=== PATIENT | female | born 1945 | race Caucasian/White ===

== ENCOUNTER → 2017-06-26 16:58 | Outpatient (CLI) | payer MEDICARE, OTHER, SELFPAY ==
--- NOTE | 2017-06-26 17:07 | RAD_ITS ---
STUDY: X-RAY - RIGHT FOOT CLINICAL: Female, 72 years old. Intermittent right ankle and foot pain for months. No history of trauma. TECHNIQUE: 3 view(s) of the foot with weightbearing. COMPARISON: None. FINDINGS: Normal talus, calcaneus, and tarsal bones. Plantar calcaneal bone spur. Normal visualized subtalar, talonavicular, calcaneocuboid, tarsal and tarsometatarsal articulations. Normal metatarsi. Joint space narrowing first metatarsophalangeal joint. Normal tibial and fibular sesamoid bones. Normal interphalangeal joint of the great toe. Normal phalanges of the great toe. Normal second through fifth metatarsophalangeal joints. Normal interphalangeal joints and phalanges of the lesser toes. The soft tissue structures are unremarkable. RAD/Foot min 3 Views IMPRESSION: Degenerative changes first metatarsophalangeal joint. Plantar calcaneal bone spur. Electronically Signed: Miguel Angel Davidson MD at 7:58 EDT , Service support ,
== END ==
PROVIDERS: Family Provider Family Medicine; PCP Family Medicine; Visit Provider Family Medicine
DX: M25.571 Pain in right ankle and joints of right foot (principal)
CPT/HCPCS: 73630

== ENCOUNTER → 2017-08-08 10:08 | Outpatient (CLI) | payer MEDICARE, SELFPAY ==
--- NOTE | 2017-08-08 10:10 | BI_ITS ---
MAMMOGRAPHY - BILATERAL SCREENING REASON FOR EXAM: Female, 72 years old. Routine annual screening examination. PERTINENT HISTORY: Non-contributory. TECHNIQUE: Digital bilateral breast thom (3D mammographic acquisition) in the CC and MLO projections. 2-D mediolateral oblique (MLO) and craniocaudad (CC) views of both breasts were obtained. CAD: Full Field Digital Mammography with Computer Added Detection was performed. COMPARISON: Comparison is made with prior study dated July 27, 2015 and May 28, 2012. FINDINGS: Breast Composition: There are scattered areas of fibroglandular density. There are no dominant masses or suspicious calcifications. No other significant abnormalities are identified. There has been no significant change since the prior study. BI/SCREENING MAMM (CAD), BILAT IMPRESSION: Stable bilateral screening mammogram. Yearly follow-up mammogram recommended. (A) ASSESSMENT CATEGORY: BIRADS Category 1: Negative. A letter regarding these results will be sent to the patient by the facility within 30 days. Approximately 10% of breast cancers are not detected by mammography. A normal mammogram should not delay biopsy of a clinically suspicious abnormality. [id number] Electronically Signed: João Gonzales MD at 12:28 EDT Tel [phone], Service support ,
== END ==
PROVIDERS: Family Provider Family Medicine; PCP Family Medicine; Visit Provider Family Medicine
DX: Z00.00 Encounter for general adult medical examination without abnormal findings (principal); Z12.31 Encounter for screening mammogram for malignant neoplasm of breast
CPT/HCPCS: 77063; 77067

== ENCOUNTER 2017-08-14 11:00 | Outpatient (RCR) | payer MEDICARE, OTHER, SELFPAY ==
--- NOTE | 2017-07-30 07:39 | HP.PTEVAL_ITS ---
Patient's Visit Information DEBRA JENKINS is a 72 year old F referred to Physical Therapy by Francisco Wakefield with a diagnosis of R medial mortise pain. Date of Evaluation: 07/17/17 Physical Therapist: Brady Garcia - Visit Plan Frequency: 1-2x /Week Duration: 4-6 Weeks Plan: Start with post tib and foot intrinsic strengthening. May use modalities to reduce symptoms. Trial taping to stabilize foot, possible need for orthotics. - Subjective Subjective: Pt. is here today for her initial evaluation with diangosis of R medial mortise pain in her foot. Pt. reports having increasing pain for a few months now with no mechanism of injury, except that she thinks she has changed her gait pattern due to L knee pain. Pt. reports increased pain with walking fast, descending steps, but has minimal pain with decreased tempo with gait. Pt. reports feeling slight better over the last week or so. Pt. did get back recently from a trip where she had to walk a lot and this really bothered her. Pt. denies N/T, no previous foot injury. Pt. denies falls. Pt. has no difficulty with sleep or off loaded positioning. Pt. is hopeful to reduce symptoms in order to get back to all recreational walking without issues. - Pain R medial ankle Pain Intensity (Out of 10): 0 Pain Intensity Range: 0, 7 Comment: 7/10 with walking. - Objective POSTURE: PT. has normal knee posture in stance. Pt. has minimal navicular drop bilaterally. PALPATION: Pt. has increased pain aloing medial aspect of talofibular joint, just medial to ant tib tendon. Pt. has no ant tib pain or lateral ankle pain. NEUROLOGICAL: pt. has normal sensation to light and sharp touch throughout bilateral LEs. Pt. has 2+ achilles and patellar DTR bilaterally. Pt. is able to rise on heels and toes without signs of visible weakness. ROM: L ankle- normal ROM throughout, 14deg of DF on L ankle, normal knee ROM. R ankle- 12deg DF, EVR 18deg mild increase NW at medial ankle. Normal knee ROM. MMT: LLE- ankle 5/5 throughout; knee- 5/5 throughout. RLE- ankle 5/5 throughout, mild increase in symptoms with inv testing. 5/5 strength of knee musculature. GAIT: Pt. ambulates without ad, she has decreased L step length and R hip ext due to reports of increased pain. Pt. has increased R hind foot valgus during stance phase of gait that is not present with initial contact. STAIRS: Pt. has increased hind gooft valgus during eccentric lowering on R side. - Goals Goal 1:: Pt. to be I with HEP. Goal Time Frame: 4-6 Weeks Goal 2:: Pt. to have full AROM of R ankle without increase in medial ankle pain. Goal Time Frame: 4-6 Weeks Goal 3:: Pt. to have increased post tib strength and foot intrinsic strength to 5/5 to reduce stress to medial aspect of ankle. Goal Time Frame: 4-6 Weeks Goal 4:: Pt. to have improved gait pattern with reduce reports of pain to 0-2/ 10 allowing for increased quality of life. Goal Time Frame: 4-6 Weeks - Rehabilitation Potential Physical Therapy Diagnosis: Pt. has signs and symptoms consistent with R medial ankle pain. Pt. has no signs of marked weakness except for post. tib and foot intrinsic, and her gait pattern is altered. I recommended pt. work on post tib stability exercises and possible need for orthotics to reduce hindfoot valgus positioning with gait. Rehabilitation Potential: Excellent - Anticipated Interventions Patient/Client Instruction: Educate patient on: Condition, Plan of Care, Risk Factors, Benefits of Fitness Program For the Purpose of:: To foster healthy habits, To improve decision making, To facilitate caregiver knowledge, To improve self management, To prevent re-injury , To improve ability to perform tasks related to life management, To improve tolerance to ADL's Therapeutic Exercise to Include: Strength training, Balance training, Coordination, Gait and locomotor training, Passive ROM, Active ROM For the Purpose of:: To decrease pain, To decrease swelling/inflammation, To increase ROM, To improve nutrient delivery to tissue, To improve gait and locomotor functions, To improve health of tissue, To decrease soft tissue restriction Manual Therapy Techniques to Include: Mobilization, Passive ROM For the Purpose of:: To decrease pain, To increase ROM, To improve nutrient delivery to tissue, To increase oxygenation perfusion IF ES: Yes Ultrasound (thermal/non thermal): Yes For the Purpose of:: To decrease pain, To decrease swelling/inflammation, To increase ROM Thank you for the opportunity to evaluate your patient. For Medicare and Medicare HMO plans, please review the plan of care and approve it. It will need to be FAXED BACK to us at [phone] for Medicare purposes. Please let me know if there are questions or concerns regarding this plan of care. Physician Signature: Date:
--- NOTE | 2017-08-16 13:46 | HP.PTREVAL_ITS ---
Francisco Wakefield, It has been my pleasure to treat DEBRA JENKINS over the last 5 visits for R medial mortise pain. Please see the progress note below for an update on the physical therapy plan of care! Subjective: Pt. reports I am feeling better, but not all the way better yet.' Pt. reports being HEP compliant without issues. Pt. plans on continuing to stretch and strengthening on own at this point in time. Pt. reports having 1-2/ 10 pain with all walking and medial aspects of anterior ankle. Objective/Function: Pt. has normal ROM of R ankle, but does have increased R medial ankle pain with increased overpressure with DF. Pt. is ambulating without AD, but does have increased medial stress due to increased R foot EVR and pes planus positioning during stance phase. She continue to be tender to touch at medial joint line. Pt. is progressing with strength of intrinsics 5-/5 , and post tib 5-/5. Pt. is to continue working on at home. Pt. consents. Plan Plan: Pt. to trial stretching and strengthening on own at this point in time and follow up with PT in 2-3 weeks if needed. I will leave case open for ~4 weeks, if I do not hear from her I will Dc case. Goals Goal 1:: Pt. to be I with HEP. Goal Time Frame: 4-6 Weeks Goal Progress: Goal Met Goal 2:: Pt. to have full AROM of R ankle without increase in medial ankle pain. Goal Time Frame: 4-6 Weeks Goal Progress: Progressing Goal 3:: Pt. to have increased post tib strength and foot intrinsic strength to 5/5 to reduce stress to medial aspect of ankle. Goal Time Frame: 4-6 Weeks Goal Progress: Progressing Goal 4:: Pt. to have improved gait pattern with reduce reports of pain to 0-2/ 10 allowing for increased quality of life. Goal Time Frame: 4-6 Weeks Goal Progress: Progressing Anticipated Interventions Patient/Client Instruction: Educate patient on: Condition, Plan of Care, Risk Factors, Benefits of Fitness Program For the Purpose of:: To foster healthy habits, To improve decision making, To facilitate caregiver knowledge, To improve self management, To prevent re-injury , To improve ability to perform tasks related to life management, To improve tolerance to ADL's Therapeutic Exercise to Include: Strength training, Balance training, Coordination, Gait and locomotor training, Passive ROM, Active ROM For the Purpose of:: To decrease pain, To decrease swelling/inflammation, To increase ROM, To improve nutrient delivery to tissue, To improve gait and locomotor functions, To improve health of tissue, To decrease soft tissue restriction Manual Therapy Techniques to Include: Mobilization, Passive ROM For the Purpose of:: To decrease pain, To increase ROM, To improve nutrient delivery to tissue, To increase oxygenation perfusion IF ES: Yes Ultrasound (thermal/non thermal): Yes For the Purpose of:: To decrease pain, To decrease swelling/inflammation, To increase ROM Please do not hesitate to contact me at [phone] by phone or Fax: if you have questions or concerns regarding this new plan of care! Sincerely, Brady Garcia
--- NOTE | 2018-01-10 11:00 | HP.PTDCNRP_ITS ---
HP - Discharge Summary (1) - Patient Information DEBRA JENKINS was seen in my office for initial evaluation on 07/17/17. The following Plan of Care was established for this patient: Initial Frequency: 1-2x /Week Initial Duration: 4-6 Weeks - Anticipated Interventions Patient/Client Instruction: Educate patient on: Condition, Plan of Care, Risk Factors, Benefits of Fitness Program For the Purpose of:: To foster healthy habits, To improve decision making, To facilitate caregiver knowledge, To improve self management, To prevent re- injury, To improve ability to perform tasks related to life management, To impr ove tolerance to ADL's Therapeutic Exercise to Include: Strength training, Balance training, Coordination, Gait and locomotor training, Passive ROM, Active ROM For the Purpose of:: To decrease pain, To decrease swelling/inflammation, To increase ROM, To improve nutrient delivery to tissue, To improve gait and locomotor functions, To improve health of tissue, To decrease soft tissue restriction Manual Therapy Techniques to Include: Mobilization, Passive ROM For the Purpose of:: To decrease pain, To increase ROM, To improve nutrient delivery to tissue, To increase oxygenation perfusion IF ES: Yes Ultrasound (thermal/non thermal): Yes For the Purpose of:: To decrease pain, To decrease swelling/inflammation, To increase ROM This patient was last seen in our office 08/14/17. Pertinent comments regarding their Physical therapy will appear below: Pt. was seen for her R medial ankle pain. Pt. was having some success with PT, but was not all the way better at our last visit. Pt. was to complete exercises on own as she desired and follow up with PT if needed. Pt. has not been seen in several months and will DC from PT at this point in time. At this point I will be discontinuing this patient from physical therapy. I would be happy to see this patient again in the future if found appropriate by the physician. Thank you! Brady Garcia
== END 2017-08-14 19:00 | disposition home or self-care (01) ==
LOC: PT 11:00
PROVIDERS: Family Provider Family Medicine; PCP Family Medicine; Visit Provider Family Medicine
DX: M25.571 Pain in right ankle and joints of right foot (principal)
CPT/HCPCS: 97035; 97110; 97161

== ENCOUNTER → 2017-10-05 09:25 | Outpatient (CLI) | payer MEDICARE, OTHER, SELFPAY ==
[2017-10-05 12:20] LABS: Absolute Lymphocyte Count 2.14 X10^3/ul (0.83-4.51); Absolute Neutrophil Count 4.7 X10^3/uL (2.0-7.7); Basophil# 0.02 X10^3/uL; Basophil% 0.3 % (0-1); Eosinophil# 0.08 X10^3/uL; Hematocrit 42.4 % (37-47); Hemoglobin 14.3 g/dl (12.0-15.0); Lymphocyte # 2.14 X10^3/ul (4.0); Lymphocyte % 27.8 % (19-41); Mean Corp Hgb Conc 33.7 g/gl (32-36); Mean Corpuscular Hgb 30.2 pg (27.0-32.0); Mean Corpuscular Volume 89.5 fL (81-99); Mean Platelet Vol. 12.3 fl (6.2-12.0); Monocyte# 0.73 X10^3/uL; Monocyte% 9.5 % (0-10); Platelet Count 266 K/mm3 (150-450); RBC Distribution Width CV 13.7 % (11.6-14.6); RBC Distribution Width SD 44.1 fl (35.1-43.9); Red Blood Count 4.74 M/mm3 (4.2-5.4); White Blood Count 7.7 K/mm3 (4.4-11.0)
[2017-10-05 12:24] LABS: POSITIVE COUNT NO; POSITIVE DIFFERENTIAL NO; POSITIVE MORPHOLOGY NO
[2017-10-05 12:25] LABS: Erythrocyte Sedimentation Rate 7 mm/hr (0-30)
[2017-10-05 15:59] LABS: ALB/GLOB Ratio 0.9 RATIO (0.9-2.4); AST(SGOT) 23 U/L (15-37); Alanine Aminotransfer ALT/SGPT 32 U/L (13-56); Albumin, Serum 3.7 g/dL (3.2-5.0); Alkaline Phosphatase 71 U/L (45-117); Anion Gap 10 (5-15); BUN 17 mg/dL (7-18); BUN/Creat Ratio 20.4 RATIO (10-20); CRP 5.83 mg/L (0.0-3.0); Calcium,Total 8.7 mg/dL (8.5-10.1); Chloride 105 mmol/L (98-107); Creatinine, Serum 0.83 mg/dL (0.55-1.02); EST Glomerular Filtration Rate 72 mL/min (>60); Est Glom Filt Rate - Afr Amer 87 mL/min (>60); Globulin 4.1 g/dL (2.2-4.2); Glucose 92 mg/dL (74-106); Potassium 3.8 mmol/L (3.5-5.1); Protein, Total 7.8 g/dL (6.4-8.2); Rheumatoid Factor < 10.0 IU/mL (<15); Sodium Level 141 mmol/L (136-145)
[2017-10-09 09:23] LABS: ANTINUCLEAR ANTIBODIES DIRECT Negative (Negative)
[2017-10-10 12:43] LABS: CCP IgG Antibodies 7 units (0-19); HLA B27 Negative (.)
== END ==
PROVIDERS: Family Provider Family Medicine; PCP Family Medicine; Visit Provider Internal Medicine Rheumatology
DX: M25.571 Pain in right ankle and joints of right foot (principal); M17.12 Unilateral primary osteoarthritis, left knee; M21.40 Flat foot [pes planus] (acquired), unspecified foot
CPT/HCPCS: 36415; 80053; 81374; 85025; 85652; 86038; 86140; 86200; 86431

== ENCOUNTER → 2020-05-28 12:34 | Outpatient (CLI) | payer MEDICARE, OTHER, SELFPAY ==
[2018-09-13 08:55] VITALS: BMI 28.6
--- NOTE | 2020-05-28 12:38 | CT_ITS ---
STUDY: CT SCAN LOWER EXTREMITY LEFT REASON FOR EXAM: Female, 75 years old. KNEE PAIN OSTEOARTHRITIS RADIATION DOSAGE (If Supplied By Facility): CTDIvol = ( 18.76 ) mGy, DLP = ( 1158.45 ) mGycm. Individualized dose optimization techniques were used for this CT.? TECHNIQUE: Multiple axial tomographic images of the left hip, left knee and left ankle joints were obtained. Coronal and sagittal reconstructions obtained as well. COMPARISON: None. FINDINGS: The left hip was imaged. Minimal degree of a joint space narrowing. There is an 8.1 mm bone island in the left iliac wing. Imaging of the knee joint was performed. Marked degree of joint space narrowing with subchondral cystic changes and bony spur formation involving the medial compartment of the knee joint. Moderate amount of joint space narrowing involving the patellofemoral joint. Imaging of the ankle joint was performed. I suspect a 3.3 mm osteochondral defect along the lateral aspect of the dome of the talus. CT/Extremity Lower without Contra IMPRESSION: Moderate degree with joint space narrowing and subchondral cystic changes and bony spur formation involving the medial compartment of the knee joint. Moderate amount of joint space narrowing involving the patellofemoral joint. I suspect a 3.3 mm osteochondral defect along the lateral aspect of the dome of the talus. Electronically Signed: João Gonzales MD at 13:31 EST , Service support ,
== END ==
PROVIDERS: PCP Internal Medicine; Referring Provider Specialist; Visit Provider Specialist
DX: M21.161 Varus deformity, not elsewhere classified, right knee (principal)
CPT/HCPCS: 73700

== ENCOUNTER → 2020-06-03 09:22 | Outpatient (CLI) | payer MEDICARE, OTHER, SELFPAY ==
[2018-09-13 08:55] VITALS: BMI 28.6
[2020-06-03 10:40] LABS: Absolute Lymphocyte Count 2.44 X10^3/uL (0.83-4.51); Basophil# 0.03 X10^3/uL; Basophil% 0.3 % (0-1); Eosinophil# 0.05 X10^3/uL; Eosinophils% 0.5 % (0-5); Hematocrit 45.2 % (37-47); Hemoglobin 15.2 g/dL (12.0-15.0); Lymphocyte # 2.44 X10^3/ul (4.0); Lymphocyte % 26.4 % (19-41); Mean Corp Hgb Conc 33.6 g/dL (32-36); Mean Corpuscular Hgb 30.1 pg (27.0-32.0); Mean Corpuscular Volume 89.5 fL (81-99); Mean Platelet Vol. 11.6 fl (6.2-12.0); Monocyte# 0.65 X10^3/uL; NRBC Flagged by Analyzer 0 % (0-5); Neutrophil # 6.04 X10^3/uL (2.7-7.7); Neutrophil % 65.5 % (47-70); Platelet Count 273 K/mm3 (150-450); RBC Distribution Width CV 13.2 % (11.6-14.6); Red Blood Count 5.05 M/mm3 (4.2-5.4); White Blood Count 9.2 K/mm3 (4.4-11.0)
[2020-06-03 11:00] LABS: Anion Gap 7 (5-15); BUN 17 mg/dL (7-18); BUN/Creat Ratio 20.6 RATIO (10-20); Calcium,Total 9.2 mg/dL (8.5-10.1); Chloride 107 mmol/L (98-107); Creatinine, Serum 0.83 mg/dL (0.55-1.02); EST Glomerular Filtration Rate 72 mL/min (>60); Est Glom Filt Rate - Afr Amer 87 mL/min (>60); Glucose 111 mg/dL (74-106); Sodium Level 141 mmol/L (136-145)
== END ==
PROVIDERS: PCP Internal Medicine; Referring Provider Specialist; Visit Provider Specialist
DX: Z01.818 Encounter for other preprocedural examination (principal); Z01.810 Encounter for preprocedural cardiovascular examination; Z11.59 Encounter for screening for other viral diseases
CPT/HCPCS: 36415; 80048; 85025; 87635; C9803; U0002; U0003

== ENCOUNTER 2021-04-20 10:18 | Outpatient (CLI) | payer MEDICARE, OTHER, SELFPAY | END 2021-04-20 23:59 | disposition short-term general hospital (02) | LOC: LABSPEC 10:25 | PROVIDERS: PCP Internal Medicine; Visit Provider Dermatology | DX: L60.3 Nail dystrophy (principal); B02.29 Other postherpetic nervous system involvement; D22.5 Melanocytic nevi of trunk; L82.1 Other seborrheic keratosis; D18.01 Hemangioma of skin and subcutaneous tissue; Z09 Encounter for follow-up examination after completed treatment for conditions other than malignant neoplasm; Z87.2 Personal history of diseases of the skin and subcutaneous tissue; Z71.89 Other specified counseling | CPT/HCPCS: 87077; 87101 ==

== ENCOUNTER 2022-02-21 09:54 | Outpatient (CLI) | payer MEDICARE, OTHER, SELFPAY ==
--- NOTE | 2022-02-21 09:58 | BI_ITS ---
MAMMOGRAPHY - BILATERAL SCREENING REASON FOR EXAM: Female, 76 years old. Routine annual screening examination. PERTINENT HISTORY: Non-contributory. TECHNIQUE: Digital bilateral breast jose (3D mammographic acquisition) in the CC and MLO projections. 2-D mediolateral oblique (MLO) and craniocaudad (CC) views of both breasts were obtained. CAD: Full Field Digital Mammography with Computer Added Detection was performed. COMPARISON: 08/08/2017, 07/27/2015. FINDINGS: Breast Composition: There are scattered areas of fibroglandular density. There are no dominant masses or suspicious calcifications. No other significant abnormalities are identified. There has been no significant change since the prior study. BI/SCRN MAMM (CAD)W/JOSE BILAT IMPRESSION: Stable bilateral screening mammogram. Yearly follow-up mammogram recommended. (A) ASSESSMENT CATEGORY: BIRADS Category 1: Negative. A letter regarding these results will be sent to the patient by the facility within 30 days. Approximately 10% of breast cancers are not detected by mammography. A normal mammogram should not delay biopsy of a clinically suspicious abnormality. Electronically Signed: Andrea Martin, at 8:08 EST ,
--- NOTE | 2022-02-21 10:03 | BD_ITS ---
STUDY: DUAL ENERGY X-RAY ABSORPTIOMETRY / DXA REASON FOR EXAM: Female, 76 years old. [id number] TECHNIQUE: Bone Mineral Density (BMD) measurements of lumbar spine and bilateral hips were obtained. COMPARISON: Comparison is made with prior study dated 07/27/2015. FINDINGS: Lumbar Spine (L1-L4): g/cm2 (1.031) / T-score (-0.2) / Z-score (2.2) Findings are suggestive of normal bone density with a low fracture risk. Left Femur Total: g/cm2 (0.722) / T-score (-1.8) / Z-score (0.0) Left Femoral Neck: g/cm2 (0.562) / T-score (-2.6) / Z-score (-0.5) Right Femur Total: g/cm2 (0.762) / T-score (-1.5) / Z-score (0.3) Right Femoral Neck: g/cm2 (0.605) / T-score (-2.2) / Z-score (-0.1) The T-Scores on the most recent prior examination were: Lumbar Spine (L1-L4): There has been worsening of bone density since the previous examination. Left Femur Total: which represents a worsening of 7.5%. Right Femur Total: which represents an improvement of 1.2%. BD/Dexa Bone Density Study IMPRESSION: The patient is considered osteoporotic as outlined below according to World Narinder Organization (WHO) criteria with a high fracture risk. There has been worsening of bone density since the previous examination. Reference Information: The T-score is the number of standard deviations above or below the standard which is normal for young adults at their peak bone mineral density. The World Health Organization (WHO) interprets the T-scores as follows: Above -1 Normal bone density Between -1 and -2.5 Osteopenia Equal to / or below -2.5 Osteoporosis As a practical clinical guideline, osteopenia may be graded as follows: Mild -1 through -1.5 Moderate -1.6 through -2.0 Severe -2.1 through -2.4 The Z-score is the number of standard deviations above or below age-matched controls. A Z-score of less than -1.5 would be considered abnormal. References: 1. NIH Osteoporosis and Related Bone Diseases www osteo.org 2. International Society for Clinical Densitometry www iscd.org 3. National Osteoporosis Foundation www nof.org Electronically Signed: João Gonzales MD at 9:24 EST ,
== END 2022-02-21 23:59 | disposition home or self-care (01) ==
LOC: OPBI 09:55
PROVIDERS: PCP Internal Medicine; Referring Provider Internal Medicine; Visit Provider Internal Medicine
DX: Z12.31 Encounter for screening mammogram for malignant neoplasm of breast (principal); Z78.0 Asymptomatic menopausal state
CPT/HCPCS: 77063; 77067; 77080

== ENCOUNTER → 2024-02-26 | Outpatient (CLI) | payer MEDICARE, OTHER, SELFPAY ==
--- NOTE | 2024-02-26 09:12 | BI_ITS ---
MAMMOGRAPHY - BILATERAL SCREENING 3-D TOMOSYNTHESIS REASON FOR EXAM: Female, 78 years old. screening PERTINENT HISTORY: No significant family history. TECHNIQUE: 2-D mammograms and 3-D Tomosynthesis of the breast (s) were performed. CAD was performed. COMPARISON: 02/21/2022 FINDINGS: The breast composition is composed of scattered fibroglandular density. Scattered benign calcifications are seen. No dense spiculated masses or suspicious microcalcifications are identified. No architectural distortion is identified. There is no skin thickening or retraction. There has been no significant change since the prior study. BI/SCRN MAMM (CAD)W/JOSE BILAT IMPRESSION: No mammographic signs of malignancy. Routine yearly mammograms recommended. ASSESSMENT CATEGORY: BIRADS Category 1: Negative. A letter regarding these results will be sent to the patient by the facility within 30 days. FOLLOW UP RECOMMENDATION: Yearly follow up mammogram recommended. (A) Approximately 10% of breast cancers are not detected by mammography. A normal mammogram should not delay biopsy of a clinically suspicious abnormality. Electronically Signed: Yoav Barrera MD at 15:44 EST ,
--- NOTE | 2024-02-26 09:19 | BD_ITS ---
STUDY: DUAL ENERGY X-RAY ABSORPTIOMETRY / DXA REASON FOR EXAM: Female, 78 years old. [id number] TECHNIQUE: Bone Mineral Density (BMD) measurements of lumbar spine and bilateral hips were obtained. COMPARISON: Comparison is made with prior study dated February 21, 2022. FINDINGS: Lumbar Spine (L1-L4): g/cm2 (1.018) / T-score (-0.3) / Z-score (2.2) Findings are suggestive of normal bone density with a low fracture risk. Left Femur Total: g/cm2 (0.737) / T-score (-1.7) / Z-score (0.2) Left Femoral Neck: g/cm2 (0.613) / T-score (-2.1) / Z-score (0.0) Right Femur Total: g/cm2 (0.756) / T-score (-1.5) / Z-score (0.4) Right Femoral Neck: g/cm2 (0.606) / T-score (-2.2) / Z-score (0.0) The T-Scores on the most recent prior examination were: Lumbar Spine (L1-L4): There has been worsening of bone density since the previous examination. Left Femur Total: which represents an improvement of 2%. Right Femur Total: which represents a worsening of 0.9%. BD/Dexa Bone Density Study IMPRESSION: The patient is considered osteoporotic as outlined below according to World Narinder Organization (WHO) criteria with a high fracture risk. There has been worsening of bone density since the previous examination. Reference Information: The T-score is the number of standard deviations above or below the standard which is normal for young adults at their peak bone mineral density. The World Health Organization (WHO) interprets the T-scores as follows: Above -1 Normal bone density Between -1 and -2.5 Osteopenia Equal to / or below -2.5 Osteoporosis As a practical clinical guideline, osteopenia may be graded as follows: Mild -1 through -1.5 Moderate -1.6 through -2.0 Severe -2.1 through -2.4 The Z-score is the number of standard deviations above or below age-matched controls. A Z-score of less than -1.5 would be considered abnormal. References: 1. NIH Osteoporosis and Related Bone Diseases www osteo.org 2. International Society for Clinical Densitometry www iscd.org 3. National Osteoporosis Foundation www nof.org Electronically Signed: João Gonzales MD at 15:10 EST ,
== END | disposition home or self-care (01) ==
LOC: OPBD 09:11
PROVIDERS: PCP Internal Medicine; Referring Provider Internal Medicine; Visit Provider Internal Medicine
DX: Z12.31 Encounter for screening mammogram for malignant neoplasm of breast (principal); Z78.0 Asymptomatic menopausal state
CPT/HCPCS: 77063; 77067; 77080

== ENCOUNTER 2024-06-04 09:22 | Observation (INO) | payer MEDICARE, OTHER, SELFPAY ==
[2024-06-04] VITALS (9 sets, daily range): BP systolic 123–157; BP diastolic 69–112; PULSE 73–95; RESP 14–22; TEMP 36.1–36.7; O2SAT 93–98; BMI 32.0; BMI 31.6
--- NOTE | 2024-06-04 09:28 | ED.RN ---
TALKED W DR DUMONT REGARDING SYMPTOMS AND HE STATES IS NOT A STROKE .
[2024-06-04 10:07] LABS: Absolute Lymphocyte Count 2.68 X10^3/uL (0.83-4.51); Absolute Neutrophil Count 5.1 X10^3/uL (2.0-7.7); Basophil# 0.05 X10^3/uL; Basophil% 0.6 % (0-1); Eosinophil# 0.06 X10^3/uL; Eosinophils% 0.7 % (0-5); Hematocrit 43.6 % (37-47); Hemoglobin 14.3 g/dL (12.0-15.0); Lymphocyte # 2.68 X10^3/ul (0.83-4.51); Lymphocyte % 31.3 % (19-41); Mean Corp Hgb Conc 32.8 g/dL (32-36); Mean Corpuscular Hgb 29.7 pg (27.0-32.0); Mean Corpuscular Volume 90.6 fL (81-99); Mean Platelet Vol. 11.6 fl (6.2-12.0); Monocyte# 0.61 X10^3/uL; Monocyte% 7.1 % (0-10); NRBC Flagged by Analyzer 0 % (0-5); Neutrophil # 5.14 X10^3/uL (2.7-7.7); Neutrophil % 60.1 % (47-70); Platelet Count 254 K/mm3 (150-450); RBC Distribution Width SD 42.6 fl (35.1-43.9); Red Blood Count 4.81 M/mm3 (4.2-5.4); White Blood Count 8.6 K/mm3 (4.4-11.0)
[2024-06-04 10:40] LABS: Anion Gap 12 (5-15); BUN 15 mg/dL (4-19); BUN/Creat Ratio 17.1 RATIO (10-20); Calcium,Total 8.9 mg/dL (7.6-11.0); Carbon Dioxide 23.6 mmol/L (21.0-32.0); Chloride 103 mmol/L (98-108); Creatinine, Serum 0.88 mg/dL (0.70-1.20); EST Glomerular Filtration Rate 68 (>60); Glucose 112 mg/dL (70-99); Sodium Level 139 mmol/L (133-145)
--- NOTE | 2024-06-04 10:45 | RAD_ITS ---
PROCEDURE: CHEST PA AND LATERAL REASON FOR EXAM: Chest pain. Dizziness today. Unsteady gait. TECHNIQUE: Frontal and lateral views of the chest. COMPARISON: 10/31/2023 chest. FINDINGS: Lungs: Lungs clear of pneumonia and congestion. Pleura: No pleural effusions, thickening, or pneumothorax. Heart: Normal in size and configuration. Mediastinum/Leyla: Unremarkable. Great vessels: Aorta is atherosclerotic and tortuous. Bones/soft tissues: Unremarkable. RAD/Chest PA and Lateral IMPRESSION: No active cardiopulmonary disease. Reading Location: [place] [id number]
--- NOTE | 2024-06-04 10:45 | CT_ITS ---
EXAM: CT BRAIN/HEAD WITHOUT CONTRAST CLINICAL HISTORY: Altered balance. COMPARISON: No relevant prior. TECHNIQUE: Contiguous axial scans of 3.75 mm slice thicknesses with sagittal and coronal reconstruction images. One or more dose reduction techniques were utilized (e.g., automated exposure control, adjustment of mA and/or kv according to patient size, use of iterative reconstruction technique). FINDINGS: Cerebrum: No intraparenchymal hemorrhage. No abnormal areas of encephalomalacia. No mass effect or midline shift. Mild diffuse central white matter and subcortical hypoattenuation. Ventricles and cisterns: Appropriate size for patient's age. Extra-axial fluid: Unremarkable. Posterior fossa: Unremarkable cerebellum. No abnormalities involving the brainstem. Paranasal sinuses: Normal. Vasculature: Unremarkable. Mastoid air cells: Normal. Calvarium: Unremarkable. Soft tissues: Unremarkable. CT/Brain/Head without Contrast IMPRESSION: 1. No acute intracranial abnormalities are demonstrated. 2. Chronic age-related microvascular ischemic changes. Reading Location: [place] [address]
[2024-06-04] MEDS: Aspirin 81 MG TAB.CHEW 324 MG PO (11:17)
[2024-06-04 11:45] LABS: Free T3 2.6 pg/mL (2.18-3.98); Troponin T High Sensitivity 9 ng/L (<=19)
[2024-06-04 12:10] LABS: TROPONIN VARIANCE 2 HR 3; Troponin T High Sens 2 HR 7 ng/L (<=19)
--- NOTE | 2024-06-04 12:39 | EX.ED.DYSGE1 ---
HPI History of Present Illness Chief Complaint: Other, Pain/Inj Narrative Narrative: Patient is a 79-year-old female who presented to the emergency department from her primary care physician's office with a chief complaint of difficulty walking into the appointment today. Patient states that she was walking down the sidewalk and lost her balance she states that her had to catch her as she is very unsteady. She states that nothing like this is ever happened before. States a few weeks ago she noted that when she got up and went to the restroom she was falling into the bales for short period time but improved therefore she was not evaluated. Patient denies any blood thinning medications. Patient states that she completed her appointment with her primary care physician and they advised her to come here with concerns that she may have had a stroke. [facility] Medical History Contact with and (suspected) exposure to other viral communicable diseases Knee pain Home Medications ?Medication ?Instructions ?Recorded ?Last Taken ?Type duloxetine 30 mg capsule,delayed 30 mg PO QHS 06/04/24 06/03/24 History release gabapentin 300 mg capsule 300 mg PO DAILY neuropathic pain 06/04/24 06/03/24 History ibuprofen-diphenhydramine citrate 2 cap PO QHS 06/04/24 06/03/24 History 200 mg-38 mg tablet (Advil PM) Allergy/AdvReac Type Severity Reaction Status Date / Time No Known Allergies Allergy Verified 06/04/24 09:27 Social History Smoking Status: Never smoker ROS ROS ED ROS Narrative Constitutional: Denies headache, fevers, chills, lightness, dizziness Eyes: Denies change in vision double vision blurry vision Cardiovascular: Denies chest pain or palpitations Respiratory: Denies coughing wheezing shortness of breath Abdomen: Denies nausea vomit diarrhea : Denies urinary symptoms Neurological: Complains of difficulty walking earlier but has since resolved denies any other numbness or tingling Musculoskeletal: Denies back pain Skin: Denies rashes or lesions EXAM Physical Exam Narrative Exam Narrative: General: Patient was lying in bed rest comfortably did not appear to be in acute distress Head: Atraumatic, normocephalic Eyes: PERRL bilaterally, EOMI bilateral, no conjunctival injection noted Neck: Soft, supple, trach midline Cardiovascular: Regular rate and rhythm no murmurs gallops rubs are noted Respiratory: Clear to auscultation bilaterally Abdomen: Soft, nondistended, no tenderness to palpation Extremities: +5/5 strength noted in the bilateral upper and lower extremities, radial pulses +2/4 in the bilateral upper extremities Neurological: Patient follow commands knew that she was at [facility] year is 2024. NIH of 0 GCS 15 patient completed finger-nose test bilaterally for any difficulty Skin: Warm, dry, intact no rashes or lesions noted Const Vital Signs: 06/04/24 09:25 06/04/24 09:27 06/04/24 10:45 Temperature 97 F L Temperature Source Oral Pulse Rate 75 Respiratory Rate 16 Respiratory Effort Normal Non-Labored Respiratory Pattern Normal Blood Pressure 157/80 H Blood Pressure Mean 105 Pulse Ox 97 Oxygen Delivery Method Room Air Room Air 06/04/24 11:21 06/04/24 12:54 Temperature Temperature Source Pulse Rate 95 86 Respiratory Rate 18 16 Respiratory Effort Respiratory Pattern Blood Pressure 123/112 H 142/79 H Blood Pressure Mean 115 100 Pulse Ox 98 94 Oxygen Delivery Method Room Air MDM MDM MDM Narrative Medical decision making narrative: Patient is a 79-year-old female who presents to the emergency department with a chief complaint of ataxia earlier today that had resolved. On the differential diagnose includes but not limited to TIA, ischemic stroke, hemorrhagic stroke, posterior circulation stroke, hypoglycemia, electrolyte abnormality, ACS. Once workup is obtained reviewed she will be reevaluated. Patient CBC reviewed showed no evidence leukocytosis white blood cell count normal at 8.6, hemoglobin stable 14.3, plate count was noted be 254. Patient sodium normal 139, potassium of 4, creatinine normal at 0.88. Patient's troponin was noted to be 9 with a delta troponin obtained that noted to be 7. Patient's EKG was reviewed by myself which showed sinus rhythm with a rate of 82 bpm. Patient's TSH normal at 4.04, free T4 and T3 at 1 and 2.6 respectively. Patient chest x-ray reviewed by myself by radiology showed no acute cardiopulmonary processes. Patient CT head and brain without contrast showed no acute intracranial abnormalities demonstrated chronic age-related microvascular ischemic changes noted. At this point in time given the patient's difficulty with ambulation and concern for possible TIA as well as the primary care physician concern for this will discuss case with hospitalist for admission. Patient was given 325 mg aspirin Discussed case with hospitalist Dr. Ibarra who accept patient for admission. Patient notified is agreeable spinal cord concerns answered Lab Data Labs: Laboratory Results - last 24 hr 06/04/24 06/04/24 09:41 11:47 WBC 8.6 RBC 4.81 Hgb 14.3 Hct 43.6 MCV 90.6 MCH 29.7 MCHC 32.8 RDW Std Deviation 42.6 RDW Coeff of Dejon 13.0 Plt Count 254 MPV 11.6 Immature Gran % (Auto) 0.200 Neut % (Auto) 60.1 Lymph % (Auto) 31.3 Turner % (Auto) 7.1 Eos % (Auto) 0.7 Baso % (Auto) 0.6 Absolute Neuts (auto) 5.1 Absolute Lymphs (auto) 2.68 Nucleated RBC % 0 Sodium 139 Potassium 4.0 Chloride 103 Carbon Dioxide 23.6 Anion Gap 12 BUN 15 Creatinine 0.88 Est GFR (MDRD) Non-Af 68 BUN/Creatinine Ratio 17.1 Glucose 112 H Calcium 8.9 Troponin T High Sens 9 Troponin T Hi Sens 2 Hr 7 Troponin T Hi Sens 2Hr Delta 3 TSH 4.040 Free T4 1.00 Free T3 pg/dL 2.6 Radiography Diagnostic Testing: Clinical Impression(s) from Imaging Studies Brain CT 06/04/24 10:45 IMPRESSION: 1. No acute intracranial abnormalities are demonstrated. 2. Chronic age-related microvascular ischemic changes. Reading Location: [place] [address] Chest X-Ray 06/04/24 10:45 IMPRESSION: No active cardiopulmonary disease. Reading Location: [place] [address] Discharge Plan Triage Chief Complaint: Other, Pain/Inj ED Provider: Francisco Donato Dx/Rx/DC Orders Clinical Impression: Ataxia Prescriptions: No Action gabapentin 300 mg capsule 300 mg PO DAILY duloxetine 30 mg capsule,delayed release(DR/EC) 30 mg PO QHS Patient Comments: TAKE 1 CAPSULE BY MOUTH ONCE DAILY FOR 7 DAYS. CAN INCREASE TO 2 CAPSULES DAILY IF NOT HELPING WITH NEUROPATHIC PAIN. Advil PM 200-38 mg tablet 2 cap PO QHS Primary Care Provider: Mattie Euceda Referrals: Mattie Euceda DO [Primary Care Provider] - Print Language: Georgian Disposition Disposition: Acute Care Hospital [facility]
--- NOTE | 2024-06-04 13:03 | HP.PCM.HOS_ITS ---
[facility] - General General Date of Admission: 06/04/24 Date of Service: 06/04/24 Chief Complaint: Dizziness, off-balance in the morning. Sent to ED by PCP office. HPI Narrative DEBRA JENKINS, is a 79 F who was sent to ED by PCP office with chief complaint of off balance and dizziness. Patient is stated that she was feeling dizzy in the morning and while walking she found she wanted to go 1 side and her body was dragging on the other side. She further said she was deviating more on the right side. She also had some dizziness in the morning which got better but denies vertigo, tinnitus, loss of hearing. She stated about few weeks ago she took 2 pills of gabapentin and felt dizzy and off-balance when she got up to go to restroom. She denies prior history of a stroke. Her symptoms have resolved. Patient is further admitted for workup for stroke/TIA [facility] Medical History Contact with and (suspected) exposure to other viral communicable diseases Knee pain Home Medications ?Medication ?Instructions ?Recorded ?Last Taken ?Type duloxetine 30 mg capsule,delayed 30 mg PO QHS 06/04/24 06/03/24 History release gabapentin 300 mg capsule 300 mg PO DAILY neuropathic pain 06/04/24 06/03/24 History ibuprofen-diphenhydramine citrate 2 cap PO QHS 5 06/03/24 History 200 mg-38 mg tablet (Advil PM) Allergy/AdvReac Type Severity Reaction Status Date / Time No Known Allergies Allergy Verified 06/04/24 09:27 Social History Smoking Status: Never smoker ROS ROS Narrative Constitutional: Reports fatigue and weakness. No fever. HEENT: Dizziness but denies vertigo. Reports systems reviewed and no addt'l complaints, except as documented Respiratory/Chest: No acute shortness of breath or respiratory distress or wheezing. CVS: Denies chronic heart disease. No chest pain or shortness of breath Gastrointestinal: Denies coffee ground emesis, hematemesis or vomiting Genitourinary: Denies burning urination or new urinary tract symptoms Musculoskeletal: Denies acute joint pain or limited range of motion. No acute injury Neurologic: Has peripheral neuropathy for several years. On gabapentin and duloxetine. Denies seizure-like symptoms. skin: History of shingles around the left ear many years ago. Endocrinology: Reports systems reviewed and no addt'l complaints, except as documented Hematologic/Lymphatic: Reports systems reviewed and no addt'l complaints, except as documented Rest 14 ROS are negative except as mentioned in HPI Vital Signs Vital Signs Vital Signs: 06/04/24 09:25 06/04/24 09:27 06/04/24 10:45 Temperature 97 F L Temperature Source Oral Pulse Rate 75 Respiratory Rate 16 Respiratory Effort Normal Non-Labored Respiratory Pattern Normal Blood Pressure 157/80 H Blood Pressure Mean 105 Pulse Ox 97 Oxygen Delivery Method Room Air Room Air 06/04/24 11:21 06/04/24 12:54 Temperature Temperature Source Pulse Rate 95 86 Respiratory Rate 18 16 Respiratory Effort Respiratory Pattern Blood Pressure 123/112 H 142/79 H Blood Pressure Mean 115 100 Pulse Ox 98 94 Oxygen Delivery Method Room Air Weight Weight: 153 lb 3.54 oz Body Mass Index (BMI) 32.0 Physical Exam Narrative General: Alert, Oriented x3, Cooperative HEENT: Atraumatic, PERRLA, EOMI, Normocephalic Oral: Oral mucosa moist. No Gingival or Mucosal Lesions/ Ulcerations Neck: Supple, No JVD, Negative Carotid Bruits Chest wall/Lungs: Air entry diminished in bilateral lung bases. No crepitation/rhonchi Cardiovascular: Regular rate, Regular Rhythm, Normal S1, Normal S2, No M/G/R Abdomen: Bowel Sounds Present, Soft, Non Tender, Non-Distended : No dysuria. No renal angle tenderness. No suprapubic tenderness. 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 No Tenderness to Palpation of Joints or Extremities Neurological: Cranial nerves II-XII grossly intact, DTR 2+/4. No acute focal neurological deficit. Muscle strength 5/5 at major joints. NIH stroke scale 0 Psych/Mental Status: Normal Affect, Appropriate. Results Lab / Micro Data 06/04/24 09:41 06/04/24 09:41 Labs: Laboratory Results - last 24 hr 06/04/24 09:41: WBC 8.6, RBC 4.81, Hgb 14.3, Hct 43.6, MCV 90.6, MCH 29.7, MCHC 32.8, RDW Std Deviation 42.6, RDW Coeff of Dejon 13.0, Plt Count 254, MPV 11.6, Immature Gran % (Auto) 0.200, Neut % (Auto) 60.1, Lymph % (Auto) 31.3, [place] % (Auto) 7.1, Eos % (Auto) 0.7, Baso % (Auto) 0.6, Absolute Neuts (auto) 5.1, Absolute Lymphs (auto) 2.68, Nucleated RBC % 0, Sodium 139, Potassium 4.0, Chloride 103, Carbon Dioxide 23.6, Anion Gap 12, BUN 15, Creatinine 0.88, Est GFR (MDRD) Non-Af 68, BUN/Creatinine Ratio 17.1, Glucose 112 H, Calcium 8.9, Troponin T High Sens 9, TSH 4.040, Free T4 1.00, Free T3 pg/dL 2.6 06/04/24 11:47: Troponin T Hi Sens 2 Hr 7, Troponin T Hi Sens 2Hr Delta 3 Imaging Radiology Impression Brain CT 06/04/24 10:45 IMPRESSION: 1. No acute intracranial abnormalities are demonstrated. 2. Chronic age-related microvascular ischemic changes. Reading Location: [place] [address] Chest X-Ray 06/04/24 10:45 IMPRESSION: No active cardiopulmonary disease. Reading Location: [place] [address] Assessment & Plan Assessment/Plan (1) Ataxia: PLAN: Plan This is a 75-year-old female being admitted for workup of TIA in regards to episode of ataxia/disequilibrium and dizziness. 1. Ataxia/disequilibrium and dizziness, suspicion of posterior TIA but probably medication side effect: Patient is being admitted in PCU. Brain CT in ED does not show acute intracranial abnormality. Twelve-lead EKG is individually reviewed, NSR 82 bpm. Chest x-ray no acute cardiopulmonary disease. PT, OT, speech therapy/swallow evaluation and management, nursing NIH stroke scale, BP and glucose monitoring and control as per stroke protocol. TSH, A1c fasting lipid profile tomorrow AM. MRI brain, CTA head and neck and 2D echo with bubble contrast study ordered. Her blood pressure is 135/90. 2. History of shingles and peripheral neuropathy: Patient on gabapentin 300 mg daily and duloxetine 30 mg at bedtime. 3. Mild knee bilateral arthritis. PT and OT DVT prophylaxis: Lovenox 40 mg subcu daily. Living will/advanced directive/end of life care: Patient does have living will or advanced directive. Her is power of patent prosecution attorney for health. After discussion of benefits/risks procedures involved with full code, DNR CC arrest and DNR CC, the patient opted for full code. Patient does want artificial life support including intubation, tube feed, ventilator and/chest compression, central venous catheter, vasopressor and DC shock if needed Total time spent in [id number] encounter in discussion of advanced directive 17 minutes. Laboratory Results 06/04/24 09:41: WBC 8.6, RBC 4.81, Hgb 14.3, Hct 43.6, MCV 90.6, MCH 29.7, MCHC 32.8, RDW Std Deviation 42.6, RDW Coeff of Dejon 13.0, Plt Count 254, MPV 11.6, Immature Gran % (Auto) 0.200, Neut % (Auto) 60.1, Lymph % (Auto) 31.3, [place] % (Auto) 7.1, Eos % (Auto) 0.7, Baso % (Auto) 0.6, Absolute Neuts (auto) 5.1, Absolute Lymphs (auto) 2.68, Nucleated RBC % 0, Sodium 139, Potassium 4.0, Chloride 103, Carbon Dioxide 23.6, Anion Gap 12, BUN 15, Creatinine 0.88, Est GFR (MDRD) Non-Af 68, BUN/Creatinine Ratio 17.1, Glucose 112 H, Calcium 8.9, Troponin T High Sens 9, TSH 4.040, Free T4 1.00, Free T3 pg/dL 2.6 06/04/24 11:47: Troponin T Hi Sens 2 Hr 7, Troponin T Hi Sens 2Hr Delta 3 Clinical Impression(s) from Imaging Studies Brain CT 06/04/24 10:45 IMPRESSION: 1. No acute intracranial abnormalities are demonstrated. 2. Chronic age-related microvascular ischemic changes. Reading Location: [facility] Chest X-Ray 06/04/24 10:45 IMPRESSION: No active cardiopulmonary disease. Reading Location: [place] [address] Charges/Coding Visit Charges Inpatient E&M: 43369 Init Hosp L3 Procedures Hospitalists Procedures: 52859 Advncd Care Plan 30 Min
--- NOTE | 2024-06-04 14:00 | MRI_ITS ---
EXAM: BRAIN WITHOUT CONTRAST CLINICAL HISTORY: Suspected posterior stroke COMPARISON: None. TECHNIQUE: PROCEDURE: Multiplanar sequences of the brain were obtained on a 1.5 [employer] MRI system, including T1, T2, FLAIR, DWI, and ADC. No intravenous contrast was administered. FINDINGS: MRI BRAIN: No intraparenchymal hemorrhage is evident. No focus of restricted diffusion is identified to suggest acute or early subacute ischemia. There is no extra-axial fluid collection, mass effect, or shift of midline structures. The basal cisterns are visualized. The ventricles and cortical sulci are in proportion and consistent with the patient's age. There is no signal abnormality in the bee matter. There are a few scattered foci of T2/FLAIR hyperintensities in the supratentorial deep white matter that are nonspecific but most likely related to chronic small vessels ischemic changes and is age-appropriate. The midline structures demonstrate normal contours. The craniocervical junction is unremarkable. The flow voids of the large intracranial vessels are normal. The calvarium is unremarkable. The paranasal sinuses and mastoid air cells are clear. MRI/Brain without Contrast IMPRESSION: 1. No MR evidence of acute ischemia. 2. Age-appropriate volume loss and remote small vessel ischemic changes. Reading Location: [place]
--- NOTE | 2024-06-04 14:05 | ECHOCS_ITS ---
Reason For Study Reason For Study: TIA/CVA Procedure This was a 2D Doppler, Color Flow transthoracic echocardiogram. Technically difficult study due to patient body habitus. Contrast injection was used. Exam performed portable in ED. Left Ventricle Normal size and thickness. The left ventricular ejection fraction is 70 %. Normal diastology for age. Right Ventricle Moderately dilated RV with mild RV systolic dysfunction. Atria The left and right atria are normal. Mitral Valve Mild mitral annular calcification. Trivial mitral valve insufficiency. Tricuspid Valve The tricuspid valve is not well visualized. No tricuspid valve insufficiency. Aortic Valve Trisinus/trileaflet aortic valve. Pulmonic Valve The pulmonic valve is not well visualized. Great Vessels Normal sized aortic root. Pericardium/Pleural Trivial pericardial effusion. Epicardial fat. Medication Diluted definity 4ml given slow IV push to enhance endocardial definition. MMode/2D Measurements & Calculations LVIDd: 2.4 cm IVSd: 1.1 cm LVIDs: 1.7 cm LVPWd: 0.97 cm LVAd ap4: 17.0 cm2 FS: 29.0 % LVLd ap4: 6.8 cm EDV(MOD-sp4): 35.3 ml EDV(sp4-el): 35.9 ml LVAs ap4: 8.2 cm2 LVLs ap4: 6.1 cm ESV(MOD-sp4): 9.3 ml ESV(sp4-el): 9.3 ml EF(MOD-sp4): 73.7 % EF(sp4-el): 74.0 % SV(MOD-sp4): 26.0 ml SV(sp4-el): 26.6 ml LA dimension(2D): 3.0 cm SI(MOD-sp4): 16.0 ml/m2 Time Measurements MV dec time: 0.24 sec Doppler Measurements & Calculations MV E max joel: 64.3 cm/sec Lat Peak E' Joel: 9.1 cm/sec Med Peak E' Joel: 9.0 cm/sec MV A max joel: 106.9 cm/sec E/E' lat: 7.0 E/E' med: 7.1 MV E/A: 0.60 MV V2 max: 115.5 cm/sec MV P1/2t max joel: 75.2 cm/sec Ao V2 max: 122.3 cm/sec MV max P.3 mmHg MV P1/2t: 81.4 msec Ao max P.0 mmHg MV V2 mean: 61.4 cm/sec MV dec slope: 270.6 cm/sec2 Ao V2 mean: 88.2 cm/sec MV mean P.8 mmHg MVA(P1/2t): 2.7 cm2 Ao mean P.5 mmHg MV V2 VTI: 19.4 cm Ao V2 VTI: 23.9 cm AV (velocity ratio): 1.0 LV V1 max: 127.5 cm/sec LV V1 max P.5 mmHg LV V1 mean P.7 mmHg LV V1 mean: 89.8 cm/sec LV V1 VTI: 24.4 cm ECHO/Echo Complete W/ Contrast Interpretation Summary Technically difficult study. The left ventricular ejection fraction is 70 %. Moderately dilated RV with mild RV systolic dysfunction. Mild mitral annular calcification. Ordering Physician: Gumaro Ibarra Performed By: Ryne Cuellar RCS
--- NOTE | 2024-06-04 14:05 | CT_ITS ---
PROCEDURE: STROKE CTA HEAD AND NECK W/CON REASON FOR EXAM: Unstable gait. TECHNIQUE: CTA imaging of the head and neck from the aortic arch to the skull vertex with intravenous contrast. 3D reconstructions. CONTRAST: 100 cc of Isovue 370. COMPARISON: Comparison is made with prior CT scan of the brain done earlier in the day. FINDINGS: Aortic Arch: Normal size and branching pattern. Minimal atherosclerotic plaque. Brachiocephalic and Subclavians: Unremarkable RIGHT Carotid: Right CCA: Unremarkable. Right ICA: Unremarkable. Right ECA: Unremarkable. LEFT Carotid: Left CCA: Unremarkable. Left ICA: Unremarkable. Left ECA: Unremarkable. Vertebrals: Codominant. Arise from the subclavians. Both vertebrals form the basilar. RIGHT Vertebral: Unremarkable. LEFT Vertebral: Unremarkable. No intracranial aneurysms or large vascular malformations are identified. Anterior cerebral arteries: Unremarkable. Middle cerebral arteries: Unremarkable. Basilar artery: Unremarkable. Posterior cerebral arteries: Unremarkable. Other major branches of the posterior circulation: Unremarkable. Major venous structures: Unremarkable. Other findings: No lymphadenopathy. Lung apices are clear. Bones are unremarkable. CT/STROKE CTA Head AND Neck W/Con IMPRESSION: RIGHT CAROTID: Unremarkable. LEFT CAROTID: Unremarkable. VERTEBRALS: Unremarkable. INTRACRANIAL: Unremarkable. One or more dose reduction techniques were used (e.g., Automated exposure contr ol, adjustment of the mA and/or kV according to patient size, use of iterative reconstruction technique). Reading Location: [id number]
[2024-06-04 14:36] LABS: TROPONIN VARIANCE 4 HR 1; Troponin T High Sens 4 HR 8 ng/L (<=19)
[2024-06-04] MEDS: 0.9% Saline Lock 10 ML Syringe IV (16:30)
[2024-06-04] MEDS: 0.9% Normal Saline (1000mL) 1,000 ML 75 ML IV (16:30)
[2024-06-04] MEDS: Enoxaparin 40 MG/0.4 ML Syringe SC (17:50)
[2024-06-04 18:37] LABS: Bedside Glucose 92 mg/dL (74-106)
[2024-06-04] MEDS: Atorvastatin Calcium 40 MG Tablet PO (20:27)
[2024-06-04] MEDS: DULoxetine Hcl 30 MG Capsule PO (20:27)
[2024-06-04] MEDS: Gabapentin 300 MG Capsule PO (21:11)
--- NOTE | 2024-06-04 22:15 | PN.HOSP_ITS ---
Hospitalist Note MRI without acute findings.
--- NOTE | 2024-06-04 22:15 | PCM.HOSP.N ---
Hospitalist Note MRI without acute findings.
[2024-06-05 02:05] VITALS: BP 126/69; PULSE 73; RESP 18; TEMP 36.6; O2SAT 95
[2024-06-05 02:25] LABS: Bedside Glucose 93 mg/dL (74-106)
[2024-06-05 05:41] VITALS: BMI 32.6
[2024-06-05 06:27] LABS: Cholesterol 195 mg/dL (<=200); High Density Lipoprotein 56 mg/dL; Low Density Lipoprotein Calc. 106 mg/dL; Triglycerides 168 mg/dL; Very Low Density Lipoprotein 34 mg/dL (5-40)
[2024-06-05 06:35] LABS: Bedside Glucose 98 mg/dL (74-106)
[2024-06-05 07:00] VITALS: O2SAT 95
--- NOTE | 2024-06-05 07:46 | CASEMGMT ---
Social Work Per physician, MRI without acute findings, therefore PHQ9 depression screen not completed. LUIS Vaca
[2024-06-05 08:38] VITALS: BP 134/87; PULSE 73; RESP 16; TEMP 36.4; O2SAT 95
[2024-06-05] MEDS: Aspirin 81 MG TAB.CHEW PO (08:44)
[2024-06-05] MEDS: Enoxaparin 40 MG/0.4 ML Syringe SC (08:44)
--- NOTE | 2024-06-05 09:29 | DCINST_ITS ---
Discharge Instructions Diet Discharge Diet: No restrictions DC O2, CPAP, BIPAP needs Home O2 Discharge instructions: No Dressing / Incision Discharge Activity: Return to Normal Activity Weight Bearing Status: Weight bearing as tolerated Dressing / Incision Call your doctor if you observe: Fever of 101 or Higher, Coldness, Increased Pain, Numbness or Tingling, Change in Color, Inability to urinate, Inability to have a bowel movement, Shortness of breath, Dizziness, Fainting spells, Swelling in the ankles, Chest pain, Prolonged hiccupping, Increased palpitations (irregular heartbeat) and Calf discomfort Follow Up Care When: IN 2 WEEKS Test Results: Test results from this visit will be discussed in further detail at your follow- up appointment, if applicable. Discharge Plan Admission Admit Date/Time: 06/04/24 13:04 Primary Reason for Your Visit: Dizziness, disequilibrium. stroke ruled out. Attending Provider: Gumaro Ibarra Primary Care Provider: Mattie Euceda Consulting Providers: Hector Scott; Kika Malloy; Lucero Bean; Jessica Wheatley; Marj Russell; Yohan García; Tawanna Leahy; González Joiner; Henrik Walton; Jw Galloway; Lizbet England; Davis Combs; Erin Bauer; Yuliet Sprague; Romero Montoya; Sedrick Cantu; Santos Gant; Robby King; Carmela Lombardi; Saroj Valdez Discharge Orders/Prescriptions Prescriptions: New atorvastatin 10 mg tablet 10 mg PO QHS 30 Days Qty: 30 0RF Continued duloxetine 30 mg capsule,delayed release(DR/EC) 30 mg PO QHS Patient Comments: TAKE 1 CAPSULE BY MOUTH ONCE DAILY FOR 7 DAYS. CAN INCREASE TO 2 CAPSULES DAILY IF NOT HELPING WITH NEUROPATHIC PAIN. Advil PM 200-38 mg tablet 2 cap PO QHS gabapentin 300 mg capsule 300 mg PO DAILY 30 Days Qty: 0 0RF Rx Instructions: Advised to lower to 100 mg daily. Referrals / Follow Up: Mattie Euceda DO [Primary Care Provider] - Disposition Disposition (needs filled in before D/C Order can be placed): Home, Self Care
--- NOTE | 2024-06-05 10:47 | PCM.DC.SUM ---
Providers Date of Admission: 06/04/24 Date of Discharge: 06/05/24 Primary Care Physician: Dr. Mattie Euceda, DO Consultations 06/04/24 16:06 Consult: Tele-Neurology Routine Consulting Provider: [facility] Reason for Consult: Acute Ischemic Stroke/TIA EMERGENT Consult: No MD Notified: Yes Date Notified: 06/04/24 Time Notified: 14:01 Method of Notification: Text Nursing Unit Staff Notify [facility] of Tele-Neurology Consult: Yes Reason For Visit: DYSEQUILIRIUM Diagnosis Discharge Diagnosis (1) Ataxia: Status: Acute Code(s): R27.0 - Ataxia, unspecified Plan This is a 75-year-old female being admitted for workup of TIA in regards to episode of ataxia/disequilibrium and dizziness. 1. Ataxia/disequilibrium and dizziness, suspicion of posterior TIA but probably medication side effect: Patient is being admitted in PCU. Brain CT in ED does not show acute intracranial abnormality. Twelve-lead EKG is individually reviewed, NSR 82 bpm. Chest x-ray no acute cardiopulmonary disease. PT, OT, speech therapy/swallow evaluation and management, nursing NIH stroke scale, BP and glucose monitoring and control as per stroke protocol. TSH, A1c fasting lipid profile tomorrow AM. MRI brain, CTA head and neck and 2D echo with bubble contrast study ordered. Her blood pressure is 135/90. 3/: MRI brain negative for acute stroke. CTA of head and neck also negative and reported unremarkable. Stroke was ruled out. Neurology consult was canceled as patient did not need it probably from the side effect of gabapentin. I advised the patient to follow with PCP and decrease the dose of gabapentin to 100 mg daily from 300 mg daily. Patient profile shows borderline elevation, LDL 106, triglyceride 168 and therefore low-dose Lipitor 10 mg prescribed. 2. History of shingles and peripheral neuropathy: Patient on gabapentin 300 mg daily and duloxetine 30 mg at bedtime. 3. Mild knee bilateral arthritis. PT and OT DVT prophylaxis: Lovenox 40 mg subcu daily. Discharge medication reconciliation done. Discharge follow-up instructions completed. Discharge process discussed with the patient and all questions were answered to patient's satisfaction. Follow with PCP in 1 to 2 weeks Total time spent, exact 35 minutes on discharge meds reconciliation, examination, coordination of care with nurses and ancillary staff, review of imaging and blood test and discussion with the patient on follow-up instructions. Living will/advanced directive/end of life care: Patient does have living will or advanced directive. Her is power of associate attorney for health. After discussion of benefits/risks procedures involved with full code, DNR CC arrest and DNR CC, the patient opted for full code. Patient does want artificial life support including intubation, tube feed, ventilator and/chest compression, central venous catheter, vasopressor and DC shock if needed Laboratory Results 06/04/24 09:41: WBC 8.6, RBC 4.81, Hgb 14.3, Hct 43.6, MCV 90.6, MCH 29.7, MCHC 32.8, RDW Std Deviation 42.6, RDW Coeff of Dejon 13.0, Plt Count 254, MPV 11.6, Immature Gran % (Auto) 0.200, Neut % (Auto) 60.1, Lymph % (Auto) 31.3, Morrill % (Auto) 7.1, Eos % (Auto) 0.7, Baso % (Auto) 0.6, Absolute Neuts (auto) 5.1, Absolute Lymphs (auto) 2.68, Nucleated RBC % 0, Sodium 139, Potassium 4.0, Chloride 103, Carbon Dioxide 23.6, Anion Gap 12, BUN 15, Creatinine 0.88, Est GFR (MDRD) Non-Af 68, BUN/Creatinine Ratio 17.1, Glucose 112 H, Calcium 8.9, Troponin T High Sens 9, TSH 4.040, Free T4 1.00, Free T3 pg/dL 2.6 06/04/24 11:47: Troponin T Hi Sens 2 Hr 7, Troponin T Hi Sens 2Hr Delta 3 Clinical Impression(s) from Imaging Studies Brain CT 06/04/24 10:45 IMPRESSION: 1. No acute intracranial abnormalities are demonstrated. 2. Chronic age-related microvascular ischemic changes. Reading Location: [place] [id number] Chest X-Ray 06/04/24 10:45 IMPRESSION: No active cardiopulmonary disease. Reading Location: [facility] Medications at Discharge Home Medications duloxetine 30 mg capsule,delayed release 30 mg PO Q mental health 06/04/24 ibuprofen-diphenhydramine citrate 200 mg-38 mg tablet (Advil PM) 2 cap PO QHS pain 06/04/24 atorvastatin 10 mg tablet 10 mg PO QHS 1 month #30 tabs 06/05/24 gabapentin 300 mg capsule 300 mg PO DAILY neuropathic pain 30 days #0 caps 06/05/24 Physical Exam Narrative General: Alert, Oriented x3, Cooperative HEENT: Atraumatic, PERRLA, EOMI, Normocephalic Oral: Oral mucosa moist. No Gingival or Mucosal Lesions/ Ulcerations Neck: Supple, No JVD, Negative Carotid Bruits Chest wall/Lungs: Air entry equal in bilateral lung bases. No crepitation/rhonchi Cardiovascular: Regular rate, Regular Rhythm, Normal S1, Normal S2, No M/G/R Abdomen: Bowel Sounds Present, Soft, Non Tender, Non-Distended : No dysuria. No renal angle tenderness. No suprapubic tenderness. 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 No acute tenderness to Palpation of Joints or Extremities Neurological: Cranial nerves II-XII grossly intact, DTR 2+/4. No acute focal neurological deficit. Muscle strength 5/5 at major joints. NIH stroke scale 0 Psych/Mental Status: Normal Affect, Appropriate. Weight / BMI Weight Weight: 150 lb 12.739 oz Body Mass Index (BMI) 32.6 ABG / Lab / Microbiology Data 06/04/24 09:41 06/04/24 09:41 Laboratory: Laboratory Results - last 24 hr 06/04/24 14:10: Magnesium 2.0, Troponin T Hi Sens 4Hr 8, Troponin T Hi Sens 4Hr Delta 1 06/04/24 18:18: POC Glucose 92 06/05/24 02:03: POC Glucose 93 06/05/24 04:29: Hemoglobin A1c 6.0, Triglycerides 168, Cholesterol 195, LDL Cholesterol, Calc 106, VLDL Cholesterol 34, HDL Cholesterol 56, Cholesterol/HDL Ratio 3.50, TSH 4.040 06/05/24 05:52: POC Glucose 98 Radiography Diagnostic Testing: Radiology Impression Brain MRI 06/04/24 14:00 IMPRESSION: 1. No MR evidence of acute ischemia. 2. Age-appropriate volume loss and remote small vessel ischemic changes. Reading Location: [facility] Head/Neck CTA 06/04/24 14:05 IMPRESSION: RIGHT CAROTID: Unremarkable. LEFT CAROTID: Unremarkable. VERTEBRALS: Unremarkable. INTRACRANIAL: Unremarkable. One or more dose reduction techniques were used (e.g., Automated exposure control, adjustment of the mA and/or kV according to patient size, use of iterative reconstruction technique). Reading Location: [id number] Instructions Discharge Diet: No restrictions Weight Bearing Status: Weight bearing as tolerated Call your doctor if you observe: Fever of 101 or Higher, Coldness, Increased Pain, Numbness or Tingling, Change in Color, Inability to urinate, Inability to have a bowel movement, Shortness of breath, Dizziness, Fainting spells, Swelling in the ankles, Chest pain, Prolonged hiccupping, Increased palpitations (irregular heartbeat) and Calf discomfort DC O2, CPAP, BIPAP Needs Home O2 Discharge instructions: No When: IN 2 WEEKS Meaningful Use Info Meaningful Use Meaningful Use Diagnoses (Choose all that apply): None applicable Ischemic Stroke Statin Dosing Therapy Reference: STATIN DOSE THERAPY REFERENCE: * Patients > 75 years receive moderate or high dose statin therapy. * Patients 75 years or YOUNGER should receive HIGH intensity statin dose unless contraindicated. You will be required to document reason for non-treatment if statin daily dose does not meet guidelines. HIGH DOSE STATIN THERAPY DAILY Atorvastatin > than or = to 40 mg Rosuvastatin > than or = to 20 mg Amlodipine + Atorvastatin > than or = to 2.5/40 mg Ezetimibe + Simvastatin 10/80 mg Simvastatin 80mg Discharge Plan Admission Admit Date/Time: 06/04/24 13:04 Primary Reason for Your Visit: Dizziness, disequilibrium. stroke ruled out. Attending Provider: Gumaro Ibarra Primary Care Provider: Mattie Euceda Discharge Orders/Prescriptions Prescriptions: New atorvastatin 10 mg tablet 10 mg PO QHS 30 Days Qty: 30 0RF Continued duloxetine 30 mg capsule,delayed release(DR/EC) 30 mg PO QHS Patient Comments: TAKE 1 CAPSULE BY MOUTH ONCE DAILY FOR 7 DAYS. CAN INCREASE TO 2 CAPSULES DAILY IF NOT HELPING WITH NEUROPATHIC PAIN. Advil PM 200-38 mg tablet 2 cap PO QHS gabapentin 300 mg capsule 300 mg PO DAILY 30 Days Qty: 0 0RF Rx Instructions: Advised to lower to 100 mg daily. Referrals / Follow Up: Mattie Euceda DO [Primary Care Provider] - Disposition Disposition (needs filled in before D/C Order can be placed): Home, Self Care Charges/Coding Visit Charges Inpatient E&M: 53901 Disch Hosp >30min
--- NOTE | 2024-06-05 11:48 | CASEMGMT ---
Patient has order for discharge. RN CM in to discuss needs at discharge, at bedside. Patient denies needs or help at discharge. Patient had no further questions or concerns.
[2024-06-05 14:45] VITALS: BP 144/73; PULSE 88; RESP 16; TEMP 36.4; O2SAT 96
--- NOTE | 2024-06-05 15:24 | PHA.DC.MC.R ---
Pharmacy [facility] has performed discharge medication reconciliation and counseling for this patient. Spoke to nurse Dr. Fred Alcazar aware rx for Lipitor did not go anywhere, she said he will re-send soon. 1. ATORVASTATIN 10MG PO QHS The patient's discharge medication list was reviewed for discrepancies and discrepancies were resolved. The patient was counseled on the following discharge medications and changes in medications for homegoing were reviewed. The Reason for Use, instructions for use, and potential side effects were reviewed for all new medications. The patient's questions regarding all of their medications were answered. The patient was able to verbally demonstrate an understanding of their discharge medications. Medications at Discharge Home Medications duloxetine 30 mg capsule,delayed release 30 mg PO QHS mental health 06/04/24 ibuprofen-diphenhydramine citrate 200 mg-38 mg tablet (Advil PM) 2 cap PO QHS pain 06/04/24 atorvastatin 10 mg tablet 10 mg PO QHS 1 month #30 tabs 06/05/24 gabapentin 300 mg capsule 300 mg PO DAILY neuropathic pain 30 days #0 caps 06/05/24
== END 2024-06-05 09:29 | disposition home or self-care (01) ==
LOC: ED 13:06 → PCU 15:19
PROVIDERS: Admitting Provider Internal Medicine; Emergency Provider Emergency Medicine; PCP Internal Medicine; Visit Provider Internal Medicine
DX: R27.0 Ataxia, unspecified (principal); M17.0 Bilateral primary osteoarthritis of knee; G62.9 Polyneuropathy, unspecified; I34.0 Nonrheumatic mitral (valve) insufficiency; Z79.899 Other long term (current) drug therapy; R53.1 Weakness; R53.83 Other fatigue
CPT/HCPCS: 36415; 70450; 70496; 70498; 70551; 71046; 80048; 80061; 82962; 83036; 83735; 84439; 84443; 84481; 84484; 85025; 93005; 93306; 94762; 96360; 96361; 96372; 97161; 99221; 99285; Q9957; Q9967; A4216; C8929; G0378

== ENCOUNTER 2024-09-19 10:00 | Outpatient (RCR) | payer MEDICARE, OTHER, SELFPAY ==
--- NOTE | 2024-08-06 13:52 | HP.PTEVAL_ITS ---
Patient's Visit Information Visit Information Visit Information: DEBRA JENKINS is a 79 year old F referred to Physical Therapy by Dr. Mattie Downey, with a diagnosis of NECK SPASM W/TIGHTNESS L SIDE. Date of Evaluation: 08/06/24 Physical Therapist: Marcie Watson, PT, Cert MDT Visit Plan Frequency: 2x /Week Duration: 4-6 Weeks Plan: Scapular Strengthening and B Pec/UT/Levator/Scalene Stretching to help reduce stress on Cervical Spine with Daily Activities. US at 1.3 W/CM2 100% to B Neck Musculature in Sitting. Manual Therapy for STM to tender and tight cervical musculature to release trigger points and Dry Needling as needed. Instruction in Proper Posture Control, Ergonomics with ADL's and Appropriate Activity Modifications. Postural Strengthening. Shld stretching/pulleys. HEP In structions. Subjective Subjective: Work/Leisure: RETIRED Present symptoms: L NECK PAIN, L SHLD PAIN. L FOREARM AND HAND TINGING. Present since: ABOUT 10 YEARS AGO IT STARTED IN THE NECK BUT STARTED HURTING IN THE SHOULDER MORE IN THE PAST YEAR. THINKS HER FOREARM AND HAD HAS BEEN TINGLING FOR YEARS AND STATES SHE CAN STILL DO EVERYTHING WITH HER L HAND (R HANDED). STATES SHE FELL DOWN A COUPLE WEEKS AGO AT HOME COMING IN FROM THE [place] AFTER GETTING SOMETHING FROM THE [place] - STATES SHE CAUGHT HERSELF WITH HER L HAND AND BRUISED HER THUMB BUT THE BRUISE IS ALL GONE NOW AND DENIES ANY OTHER INJURIES FROM THE FALL AND DID NOT SEE A DOCTOR. SHE RELATES THE FALL TO HAVING TOO HAVING TOO BIG OF SHOES ON - HAD HUSBANDS SHOES ON. ALSO HAD A NEAR FALL IN MAY BUT GRABBED ON TO - WAS ON HER WAY TO SEE DR. DOWNEY FOR CHECK UP AT THE TIME AND DR. DOWNEY SENT HER TO THE HOSPITAL TO BE CHECKED FOR CVA - ALL TESTING NORMAL AND DETERMINED IT COULD BE FROM GABAPENTIN. Getting Better, Getting Worse or Staying the Same: GETTING WORSE Pain Scale: Worst - 8/10 Least - 3/10 Currently: 3/10 Commenced as a result of: SHINGLES Symptoms at onset: NECK Worse: NOTICES IT MORE WHEN IN BED, ANXIETY Better: GABAPENTIN BUT THAT STOPPED WORKING AND NOW NEW MEDICINE PRESCRIBED BY DR. DOWNEY A FEW MONTHS AGO IS HELPING MORE - DULOXETINE. Disturbed sleep: YES Previous history/Previous treatment: LONG HISTORY OF NECK PAIN TREATED WITH MEDICINE AND PATIENT TRYING TO DEAL WITH IT ON HER OWN. This episode: MEDICATION Dizziness: NO Tinnitus: NO Nausea: NO Shortness of Breath: NO Difficulty Swallowing: NO Gait: PATIENT CURRENTLY DENIES DIFFICULTY (WHEN SHE WEARS HER OWN SHOES). DOES NOT USE AD'S. CAN MANAGE STEPS WITH HR NEEDED. Accidents: NO Unexplained weight loss: NO Imaging: NO NECK X-RAYS THAT PATIENT IS AWARE OF OR THAT THIS PT FOUND IN [facility] EMR. PMH/Recent major surgery: ANXIETY. SHINGLES X 2 (>10 YEARS AGO AND REOCCURANCE SHORTLY AFTER FIRST EPISODE). LTKR ABOUT 4 YEARS AGO. [facility]. Objective Objective: Sitting Posture/Standing Posture: R SHLD LEVEL LOWER THAN L. R TORTICOLLIS. Active Correction of posture: BETTER. PATIENT IS ABLE TO PARTIALLY CORRECT BUT NOT MAINTAIN AND CORRECTION ALLEVIATES BUT DOES NOT ABOLISH L NECK AND SHLD PAIN. POSTURE CORRECTION HAS NE ON L FOREARM OF HAND. Other Observations: INDEP GAIT (X > 300 FEET WITHOUT LOB OR AD). AND TRANSFERS. Sensory deficit: DECREASED LIGHT TOUCH SENSATION L FOREARM AND HAND COMPARED TO R. ROM deficit: R SHLD ACTIVE ELEVATION TO 147 DEG, L 140 DEG WITH ERP Motor deficit: R UE: SHLD 4/5, ELBOW 4/5, DIRECTOR OF FINANCE 40 LBS. L UE: SHLD 4-/5, ELBOW 4-/5, DIRECTOR OF FINANCE 28 LBS. INCREASED L NECK AND SHLD PAIN WITH BRANDO UE MMT'ING L>R. Dural Signs: POSITIVE L UE Cervical Mvmt Loss: Flex: NIL Pro: NIL Ext: MOD Ret: COURTNEY RSB: MOD LSB: COURTNEY R Rot: MOD L Rot: MOD PATIENT C/O INCREASED NECK AND SHLD PAIN WITH CERVICAL ROM TESTING ALL PLANES. NE ON L FOREARM AND HAND SX'S. Postural strength: POOR Palpation: INCREASED MUSCLE TONE BRANDO CERVICAL MUSCULATURE THROUGHOUT NECK AND UPPER BACK L > RIGHT. MILD TENDERNESS L> RIGHT WITH MULTIPLE TRIGGER POINTS. OTHER: L NECK AND SHLD PAIN INCREASE IN GENERAL WITH MVMT AND DECREASE WITH REST. PAIN RATED LOW 1/10 TODAY DURING PT EVAL WITH POSTURE CORRECTION ACTIVELY AND PASSIVELY AND HIGH 6/10 WITH CERVICAL AROM TESTING. PATIENT IS VERY PLEASANT AND COOPERATIVE TO WORK WITH. PATIENT IS VERY HARD ON HERSELF AND QUESTIONS MULTIPLE TIMES IF THIS IS ALL IN HER HEAD. TREATMENT: NEUROMUSCULAR REEDUCATION - RETRAINING OF MVMT AND POSTURE FOR SITTING, LYING AND STANDING ACTIVITIES. Balance/Special Test Scores Oswestry Neck Score: 11 Goals Goal 1:: DECREASE C/O NECK AND L UE SX'S BY AT LEAST 50% TO EASE ADL'S Goal Time Frame: 4-6 Weeks Goal 2:: IMPROVE ADL FUNCTION (ESPECIALLY SLEEP FUNCTION) WITH AT LEAST 5 POINT IMPROVEMENT IN NECK OSWESTRY SCORE Goal Time Frame: 4-6 Weeks Goal 3:: INSTRUCT IN PROPHYLAXIS Goal Time Frame: 4-6 Weeks Rehabilitation Potential Physical Therapy Diagnosis: POSTURAL AND UE STIFFNESS AND WEAKNESS L>R Rehabilitation Potential: Good Anticipated Interventions Patient/Client Instruction: Educate patient on: Condition, Plan of Care and Risk Factors For the Purpose of:: To improve self management Therapeutic Exercise to Include: Strength training, Postural training, Flexibilty training, Neuromotor development, Relaxation training and Scapular Strength/Stabilization For the Purpose of:: To decrease pain, To improve muscle performance and motor function, To improve ability to perform ADL's, To increase tolerance to activity/condition/position, To improve ability of physical actions for home/community/work/leisure, To decrease soft tissue restriction, To increase flexibility/ROM and To improve self management Manual Therapy Techniques to Include: Trigger point massage, Functional dry needling and Soft tissue mobilization For the Purpose of:: To decrease pain, To decrease soft tissue restriction and To increase flexibility/ROM Ultrasound (thermal/non thermal): Yes For the Purpose of:: To decrease pain and To improve nutrient delivery to tissue Text: Thank you for the opportunity to evaluate your patient. For Medicare and Medicare HMO plans, please review the plan of care and approve it. It will need to be FAXED BACK to us at [phone] for Medicare purposes. For Medicare only, by signing this I certify the plan of care. Please let me know if there are questions or concerns regarding this plan of care. Physician Signature: Date:
--- NOTE | 2024-09-19 11:26 | HP.PTEVAL_ITS ---
Patient's Visit Information Visit Information Visit Information: DEBRA JENKINS is a 79 year old F referred to Physical Therapy by Dr. Mattie Downey, DO with a diagnosis of NECK SPASM W/TIGHTNESS L SIDE. Date of Evaluation: 08/06/24 Physical Therapist: Marcie Watson PT, Cert MDT Visit Plan Frequency: 2x /Week Duration: 4-6 Weeks Plan: D/C TO [facility]. Subjective Subjective: Work/Leisure: RETIRED Present symptoms: L NECK PAIN, L SHLD PAIN. L FOREARM AND HAND TINGING. Present since: ABOUT 10 YEARS AGO IT STARTED IN THE NECK BUT STARTED HURTING IN THE SHOULDER MORE IN THE PAST YEAR. THINKS HER FOREARM AND HAD HAS BEEN TINGLING FOR YEARS AND STATES SHE CAN STILL DO EVERYTHING WITH HER L HAND (R HANDED). STATES SHE FELL DOWN A COUPLE WEEKS AGO AT HOME COMING IN FROM THE GARAGE AFTER GETTING SOMETHING FROM THE FREEZER - STATES SHE CAUGHT HERSELF WITH HER L HAND AND BRUISED HER THUMB BUT THE BRUISE IS ALL GONE NOW AND DENIES ANY O THER INJURIES FROM THE FALL AND DID NOT SEE A DOCTOR. SHE RELATES THE FALL TO HAVING TOO HAVING TOO BIG OF SHOES ON - HAD HUSBANDS SHOES ON. ALSO HAD A NEAR FALL IN MAY BUT GRABBED ON TO - WAS ON HER WAY TO SEE DR. DOWNEY FOR CHECK UP AT THE TIME AND DR. DOWNEY SENT HER TO THE HOSPITAL TO BE CHECKED FOR CVA - ALL TESTING NORMAL AND DETERMINED IT COULD BE FROM GABAPENTIN. Getting Better, Getting Worse or Staying the Same: GETTING WORSE Pain Scale: Worst - 8/10 Least - 3/10 Currently: 3/10 Commenced as a result of: SHINGLES Symptoms at onset: NECK Worse: NOTICES IT MORE WHEN IN BED, ANXIETY Better: GABAPENTIN BUT THAT STOPPED WORKING AND NOW NEW MEDICINE PRESCRIBED BY DR. DOWNEY A FEW MONTHS AGO IS HELPING MORE - DULOXETINE. Disturbed sleep: YES Previous history/Previous treatment: LONG HISTORY OF NECK PAIN TREATED WITH MEDICINE AND PATIENT TRYING TO DEAL WITH IT ON HER OWN. This episode: MEDICATION Dizziness: NO Tinnitus: NO Nausea: NO Shortness of Breath: NO Difficulty Swallowing: NO Gait: PATIENT CURRENTLY DENIES DIFFICULTY (WHEN SHE WEARS HER OWN SHOES). DOES NOT USE AD'S. CAN MANAGE STEPS WITH HR NEEDED. Accidents: NO Unexplained weight loss: NO Imaging: NO NECK X-RAYS THAT PATIENT IS AWARE OF OR THAT THIS PT FOUND IN [facility] EMR. PMH/Recent major surgery: ANXIETY. SHINGLES X 2 (>10 YEARS AGO AND REOCCURANCE SHORTLY AFTER FIRST EPISODE). LTKR ABOUT 4 YEARS AGO. [facility]. Pain L NECK: Pain Intensity (Out of 10): 1 Objective Objective: Sitting Posture/Standing Posture: R SHLD LEVEL LOWER THAN L. R TORTICOLLIS. Active Correction of posture: BETTER. PATIENT IS ABLE TO PARTIALLY CORRECT BUT NOT MAINTAIN AND CORRECTION ALLEVIATES BUT DOES NOT ABOLISH L NECK AND SHLD PAIN. POSTURE CORRECTION HAS NE ON L FOREARM OF HAND. Other Observations: INDEP GAIT (X > 300 FEET WITHOUT LOB OR AD). AND [place] SFERS. Sensory deficit: DECREASED LIGHT TOUCH SENSATION L FOREARM AND HAND COMPARED TO R. ROM deficit: R SHLD ACTIVE ELEVATION TO 147 DEG, L 140 DEG WITH ERP Motor deficit: R UE: SHLD 4/5, ELBOW 4/5, CHAIRMAN 40 LBS. L UE: SHLD 4-/5, ELBOW 4-/5, CHAIRMAN 28 LBS. INCREASED L NECK AND SHLD PAIN WITH BRANDO UE MMT'ING L>R. Dural Signs: POSITIVE L UE Cervical Mvmt Loss: Flex: NIL Pro: NIL Ext: MOD Ret: COURTNEY RSB: MOD LSB: COURTNEY R Rot: MOD L Rot: MOD PATIENT C/O INCREASED NECK AND SHLD PAIN WITH CERVICAL ROM TESTING ALL PLANES. NE ON L FOREARM AND HAND SX'S. Postural strength: POOR Palpation: INCREASED MUSCLE TONE BRANDO CERVICAL MUSCULATURE THROUGHOUT NECK AND UPPER BACK L > RIGHT. MILD TENDERNESS L> RIGHT WITH MULTIPLE TRIGGER POINTS. OTHER: L NECK AND SHLD PAIN INCREASE IN GENERAL WITH MVMT AND DECREASE WITH REST. PAIN RATED LOW 1/10 TODAY DURING PT EVAL WITH POSTURE CORRECTION ACTIVELY AND PASSIVELY AND HIGH 6/10 WITH CERVICAL AROM TESTING. PATIENT IS VERY PLEASANT AND COOPERATIVE TO WORK WITH. PATIENT IS VERY HARD ON HERSELF AND QUESTIONS MULTIPLE TIMES IF THIS IS ALL IN HER HEAD. TREATMENT: NEUROMUSCULAR REEDUCATION - RETRAINING OF MVMT AND POSTURE FOR SITTING, LYING AND STANDING ACTIVITIES. Balance/Special Test Scores Oswestry Neck Score: 6 Goals Goal 1:: DECREASE C/O NECK AND L UE SX'S BY AT LEAST 50% TO EASE ADL'S Goal Time Frame: 4-6 Weeks Goal 2:: IMPROVE ADL FUNCTION (ESPECIALLY SLEEP FUNCTION) WITH AT LEAST 5 POINT IMPROVEMENT IN NECK OSWESTRY SCORE Goal Time Frame: 4-6 Weeks Goal 3:: INSTRUCT IN PROPHYLAXIS Goal Time Frame: 4-6 Weeks Rehabilitation Potential Physical Therapy Diagnosis: POSTURAL AND UE STIFFNESS AND WEAKNESS L>R Rehabilitation Potential: Good Anticipated Interventions Patient/Client Instruction: Educate patient on: Condition, Plan of Care and Risk Factors For the Purpose of:: To improve self management Therapeutic Exercise to Include: Strength training, Postural training, Flexibilty training, Neuromotor development, Relaxation training and Scapular Strength/Stabilization For the Purpose of:: To decrease pain, To improve muscle performance and motor function, To improve ability to perform ADL's, To increase tolerance to activity/condition/position, To improve ability of physical actions for home/community/work/leisure, To decrease soft tissue restriction, To increase flexibility/ROM and To improve self management Manual Therapy Techniques to Include: Trigger point massage, Functional dry needling and Soft tissue mobilization For the Purpose of:: To decrease pain, To decrease soft tissue restriction and To increase flexibility/ROM Ultrasound (thermal/non thermal): Yes For the Purpose of:: To decrease pain and To improve nutrient delivery to tissue Text: Thank you for the opportunity to evaluate your patient. For Medicare and Medicare HMO plans, please review the plan of care and approve it. It will need to be FAXED BACK to us at [phone] for Medicare purposes. For Medicare only, by signing this I certify the plan of care. Please let me know if there are questions or concerns regarding this plan of care. Physician Signature: Date:
== END 2024-09-19 19:00 | disposition home or self-care (01) ==
LOC: PT 10:00
PROVIDERS: PCP Internal Medicine; Referring Provider Internal Medicine; Visit Provider Internal Medicine
DX: R25.2 Cramp and spasm (principal)
CPT/HCPCS: 97035; 97112; 97140; 97162; 97530

== ENCOUNTER → 2025-03-04 | Outpatient (CLI) | payer MEDICARE, OTHER, SELFPAY ==
--- NOTE | 2025-03-04 09:55 | BI_ITS ---
EXAM: SCRN MAMM (CAD)W/JOSE BILAT DATE: 03/04/2025 CLINICAL HISTORY: F, Age 79 y/o , ENCOUNTER FOR SCREENING MAMMOGRAM FOR MALIGNANT NEOPL... TECHNIQUE: Procedure Code: [id number] Modality: MG Procedure: SCRN MAMM (CAD)W/JOSE BILAT COMPARISON: Prior exam(s) were compared FINDINGS: TISSUE DENSITY: The breasts are heterogeneously dense, which may obscure small masses. Bilateral Breast Mammographic Findings: No significant masses, calcifications or other abnormalities are identified. BI/SCRN MAMM (CAD)W/JOSE BILAT IMPRESSION: No mammographic evidence of malignancy in either breast. OVERALL FINAL ASSESSMENT BI-RADS 1: NEGATIVE. RECOMMENDATION: Routine annual follow-up in 1 Year Additional Recommendation none A letter with findings and recommendations will be mailed to the patient. Reading Location: [id number]
== END | disposition home or self-care (01) ==
PROVIDERS: PCP Internal Medicine; Referring Provider Internal Medicine; Visit Provider Internal Medicine
DX: Z12.31 Encounter for screening mammogram for malignant neoplasm of breast (principal)
CPT/HCPCS: 77063; 77067